=== PATIENT | male | born 1975 | race Caucasian/White ===

== ENCOUNTER 2018-01-05 10:47 | Emergency (ER) | payer SELFPAY ==
[~2018-01-05] VITALS: Ht 177.8 cm; Wt 92.6 kg
[~2018-01-05 10:47] MED LIST: ALEVE220 MG PO; AUGMENTIN875 MG PO; FLEXERIL10 MG PO; HYDROCODON-ACE1 EAC7 PO; MOTRIN600 MG PO; MOTRIN800 MG PO; NAPROSYN500 MG PO; NOHOMEMEDS; PEN-VEE K,VEET500 MG PO; TYLENOL REGULA325 MG PO; ULTRAM50 MG PO
[2018-01-05] MEDS ORDERED: NORCO 10/3251 TABLET PO (14:29)
[2018-01-05 14:43] LABS: BASOPHIL (%) 0.7 % (0-1); BASOPHIL COUNT 0.1 K/uL (0-0.1); EOSINOPHIL (%) 4.4 % (0-5); EOSINOPHIL COUNT 0.3 K/uL (0-0.3); HEMATOCRIT 45.4 % (38.0-50.0); HEMOGLOBIN 15.6 G/DL (12.5-16.6); IMMATURE GRANULOCYTE (%) 0.1 % (0.0-0.7); LYMPHOCYTE (%) 35.5 % (15-42); LYMPHOCYTE COUNT 2.7 K/uL (1.0-2.8); MCHC 34.4 G/DL (30.0-36.0); MCV 93.2 FL (86-99); MONOCYTE (%) 8.3 % (3-12); MONOCYTE COUNT 0.6 K/uL (0-0.8); NEUTROPHIL COUNT 3.8 K/uL (1.8-6.4); PLATELET COUNT 246 K/uL (156-360); RBC DIS.WIDTH-CV 12.8 % (11.8-14.6); RBC DIS.WIDTH-SD 43.8 % (39-53); RED BLOOD COUNT 4.87 M/uL (4.00-5.50); WHITE BLOOD COUNT 7.5 K/uL (4.1-10.2)
[2018-01-05 14:49] VITALS: BP 118/74
[2018-01-05 14:51] LABS: CHLORIDE 107 mEq/L (99-109); POTASSIUM 4.5 mEq/L (3.7-5.4); SODIUM 141 mEq/L (136-147)
[2018-01-05 14:53] LABS: GLUCOSE 91 mg/dL (70-99)
[2018-01-05 14:57] LABS: CREATININE 1.1 mg/dL (0.6-1.3); GFR ESTIMATE (CALCULATED) > 59 mL/min/ (58.99-99999)
[2018-01-05 14:58] LABS: UREA NITROGEN (BUN) 14 mg/dL (9-23)
[2018-01-06 14:41] LABS: TREPONEMA ANTIBODY POSITIVE (NEGATIVE)
[2018-01-07 18:31] LABS: RPR SCREEN Reactive (Nonreactive)
[2018-01-07 18:46] LABS: RPR TITER Reactive 1:128 (())
[2018-01-08 18:40] LABS: TREPONEMA PALLIDUM PART AGGL Reactive (Nonreactive)
== END 2018-01-05 14:51 | disposition home or self-care (01) ==
LOC: EME 10:47
PROVIDERS: Emergency Medicine
DX: L98.9 Disorder of the skin and subcutaneous tissue, unspecified (principal); F17.200 Nicotine dependence, unspecified, uncomplicated
CPT/HCPCS: 80048; 85025; 86592 90; 86593 90; 86780; 86780 90; 99281; 99284